=== PATIENT | female | born 1990 | race African-American/Black ===

== ENCOUNTER 2020-10-13 07:10 | Emergency (ER) | payer BC, OTHER ==
[2020-10-13] MEDS ORDERED: Lidocaine 1% (PF) 30 ML VIAL ONE (08:35)
== END 2020-10-13 09:25 | disposition home or self-care (01) ==
LOC: CSHERS 07:10
DX: O23.592 Infection of other part of genital tract in pregnancy, second trimester (principal); Z3A.19 19 weeks gestation of pregnancy
CPT/HCPCS: 56405; J2001

== ENCOUNTER 2021-04-22 18:04 | Emergency (ER) | payer BC, OTHER, SELFPAY | END 2021-04-22 22:13 | disposition home or self-care (01) | LOC: CSHERS 18:04 | DX: R51.9 Headache, unspecified (principal); F17.210 Nicotine dependence, cigarettes, uncomplicated | CPT/HCPCS: 70450 ==

== ENCOUNTER 2021-07-23 19:18 | Emergency (ER) | payer OTHER ==
[2021-07-23] MEDS ORDERED: Ibuprofen 200 MG TAB ONE (20:11)
== END 2021-07-23 21:44 | disposition home or self-care (01) ==
LOC: CSHERS 19:18
DX: S39.92XA Unspecified injury of lower back, initial encounter (principal); M43.17 Spondylolisthesis, lumbosacral region; M47.817 Spondylosis without myelopathy or radiculopathy, lumbosacral region; F17.210 Nicotine dependence, cigarettes, uncomplicated; W01.0XXA Fall on same level from slipping, tripping and stumbling without subsequent striking against object, initial encounter
CPT/HCPCS: 72100

== ENCOUNTER 2021-10-05 17:40 | Emergency (ER) | payer OTHER ==
[2021-10-05] MEDS ORDERED: Metoclopramide HCl 10 MG/2 ML VIAL ONE (18:26)
[2021-10-05] MEDS ORDERED: diphenhydrAMINE 50 MG/ML VIAL ONE (18:26)
[2021-10-05] MEDS ORDERED: Ketorolac Tromethamine 30 MG/ML VIAL ONE (18:26)
== END 2021-10-05 19:05 | disposition home or self-care (01) ==
LOC: CSHERS 17:40
DX: R51.9 Headache, unspecified (principal); F17.210 Nicotine dependence, cigarettes, uncomplicated
CPT/HCPCS: 96365; 96375; J1200; J1885; J2765

== ENCOUNTER 2021-12-03 20:36 | Emergency (ER) | payer OTHER ==
[2021-12-03 22:09] LABS: Bilirubin Neg (Negative); Blood, Urine Negative (Negative); Clarity Clear (Clear); Glucose, Urine (Dipstick) Normal (Negative); Ketone, Urine 15 mg/dL (Negative); Leukocyte Negative (Negative); Nitrite Negative (Negative); Pregnancy Test - Urine (BHCG) Negative (Negative); Pregu Control Background? CLEAR/WHITE (CLR/WHITE); Pregu Control Bar Appear? YES (CONTROL BAR); Protein, Urine (Dipstick) 15 mg/dl (Neg-Trace); Specific Gravity 1.025 (1.002-1.036); Specific Gravity, Urine 1.025 (1.005-1.030); Urobilinogen Normal mg/dL (Less than 2)
[2021-12-03] MEDS ORDERED: Ondansetron ODT 4 MG TAB ONE (23:18)
[2021-12-03 23:54] LABS: #Monocytes 0.4 10x3/uL (0.0-1.1); #Neutrophils 6.9 10x3/uL (1.5-8.4); %Basophils 0.1 % (0.0-2.0); %Eosinophils 0.4 % (0.0-6.0); %Lymphocytes 11.5 % (18.0-47.0); %Monocytes 4.4 % (0.0-10.0); %Neutrophils 83.5 % (40.0-75.0); Hemoglobin 14.3 g/dL (12.0-15.5); Mean Corpuscular Volume 88.2 fl (81.6-98.3); Mean Platelet Volume 9.6 fl (7.4-10.4); Platelet Count 347 10x3/uL (150-450); RBC Distribution Width 12.4 % (11.5-14.5); Red Blood Cell (RBC) Count 4.76 10x6/uL (3.90-5.03); White Blood Cell (WBC) Count 8.2 10x3/uL (3.5-10.5)
[2021-12-04 00:01] LABS: ALT (SGPT) 11 U/L (8-55); AST (SGOT) 13 U/L (5-34); Albumin 4.3 g/dL (3.5-5.0); Alkaline Phosphatase 81 U/L (40-110); Anion Gap 13 mmol/L (10-20); BUN (Urea Nitrogen) 11 mg/dL (7.0-18.7); Bilirubin, Total 0.8 mg/dL (0.2-1.2); Calc. Creatinine Clearance 0 mL/min (70-130); Calcium 9.1 mg/dL (7.8-10.44); Carbon Dioxide 24 mmol/L (22-29); Chloride 105 mmol/L (98-107); Estimated GFR 105; Globulin 3.2 g/dL (2.4-3.5); Glucose 94 mg/dL (70-105); Potassium 4.1 mmol/L (3.5-5.1); Protein, Total 7.5 g/dL (6.0-8.3); Sodium 138 mmol/L (136-145)
== END 2021-12-04 00:15 | disposition home or self-care (01) ==
LOC: CSHERS 20:36
DX: J10.1 Influenza due to other identified influenza virus with other respiratory manifestations (principal); F17.210 Nicotine dependence, cigarettes, uncomplicated
CPT/HCPCS: 80053; 81003; 81025; 85025; 87804; 99283; Q0162

== ENCOUNTER 2022-02-13 18:20 | Emergency (ER) | payer OTHER ==
[2022-02-13] MEDS ORDERED: HYDROcodone/Acetaminophen 5/325 mg Tablet ONE (19:05)
== END 2022-02-13 19:36 | disposition home or self-care (01) ==
LOC: CSHERS 18:20
DX: N75.0 Cyst of Bartholin's gland (principal); F17.210 Nicotine dependence, cigarettes, uncomplicated
CPT/HCPCS: 99282

== ENCOUNTER 2022-02-14 23:08 | Emergency (ER) | payer OTHER ==
[2022-02-15] MEDS ORDERED: HYDROcodone/Acetaminophen 10/325 mg Tablet ONE (00:17)
== END 2022-02-15 01:29 | disposition home or self-care (01) ==
LOC: CSHERS 23:08
DX: N75.1 Abscess of Bartholin's gland (principal); F17.210 Nicotine dependence, cigarettes, uncomplicated
CPT/HCPCS: 87070; 87077; 87186; 87205; 99283

== ENCOUNTER 2022-09-30 18:41 | Emergency (ER) | payer OTHER ==
[2022-09-30] MEDS ORDERED: Dexamethasone 10 MG/ML VIAL ONE (19:27)
== END 2022-09-30 19:05 | disposition home or self-care (01) ==
LOC: CSHERS 18:41
DX: H60.501 Unspecified acute noninfective otitis externa, right ear (principal); F17.210 Nicotine dependence, cigarettes, uncomplicated
CPT/HCPCS: 99282; J1100

== ENCOUNTER 2022-10-02 18:31 | Emergency (ER) | payer OTHER ==
[2022-10-02] MEDS ORDERED: Ketorolac Tromethamine 30 MG/ML VIAL ONE (21:22)
== END 2022-10-02 21:50 | disposition home or self-care (01) ==
LOC: CSHERS 18:31
DX: H60.91 Unspecified otitis externa, right ear (principal); F17.210 Nicotine dependence, cigarettes, uncomplicated
CPT/HCPCS: 96372; 99282; J1885

== ENCOUNTER 2023-11-03 05:52 | Emergency (ER) | payer OTHER, SELFPAY | END 2023-11-03 06:39 | disposition home or self-care (01) | LOC: CSHERS 05:52 | DX: L23.4 Allergic contact dermatitis due to dyes (principal); F17.210 Nicotine dependence, cigarettes, uncomplicated | CPT/HCPCS: 99283 ==